=== PATIENT | female | born 1970 | race Caucasian/White ===

== ENCOUNTER 2020-11-01 15:46 | Emergency (ER) | payer OTHER ==
[~2020-11-01] VITALS: Ht 167.6 cm; Wt 74.8 kg
[~2020-11-01 15:46] MED LIST: CIPRO500 MG PO; KETO10TA2 PO; TAMS0.4C PO; ULTRACET PO
[2020-11-01] MEDS ORDERED: METHIMAZOLE5 MG PO (15:57)
[2020-11-01] MEDS ORDERED: METFORMIN HCL500 M4 PO (15:58)
[2020-11-01] MEDS ORDERED: SIMVASTATIN10 MG PO (15:58)
[2020-11-01] MEDS ORDERED: SINGULAIR 10MG10 MG PO (15:58)
[2020-11-01] MEDS ORDERED: LOSARTAN POTASS25 MG PO (15:58)
[2020-11-01] MEDS ORDERED: NORFLEX100MG PO (18:36)
[2020-11-01] MEDS ORDERED: KETO10TA2 PO (18:36)
[2020-11-01] MEDS ORDERED: CEPHALEXIN500 M1 PO (18:53)
== END 2020-11-01 20:25 | disposition home or self-care (01) ==
LOC: ER 15:46
DX: M94.0 Chondrocostal junction syndrome [Tietze] (principal); R07.89 Other chest pain; N39.0 Urinary tract infection, site not specified